=== PATIENT | male | born 1965 | race Caucasian/White ===

== ENCOUNTER 2024-01-04 15:56 | Emergency (ER) | payer MEDICARE, OTHER, SELFPAY ==
[2024-01-04 15:59] VITALS: BP 115/79; BMI 38.1
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
[2024-01-04] MEDS: MOTRIN 400 MG PO (17:53)
[2024-01-04] MEDS: ATIVAN 1 MG PO (17:53)
== END 2024-01-04 21:49 | disposition home or self-care (01) ==
LOC: EMR 15:56
PROVIDERS: EMERGENCY PHYSICIAN Emergency Medicine; FAMILY PHYSICIAN Family Medicine
DX: S29.012A Strain of muscle and tendon of back wall of thorax, initial encounter (principal); M54.2 Cervicalgia; V79.88XA Bus occupant (driver) (passenger) injured in other specified transport accidents, initial encounter; W01.0XXA Fall on same level from slipping, tripping and stumbling without subsequent striking against object, initial encounter; Y92.410 Unspecified street and highway as the place of occurrence of the external cause; I10 Essential (primary) hypertension; F41.9 Anxiety disorder, unspecified; F20.9 Schizophrenia, unspecified; E78.00 Pure hypercholesterolemia, unspecified; F41.0 Panic disorder [episodic paroxysmal anxiety]; Z87.891 Personal history of nicotine dependence
CPT/HCPCS: 99283; 93005

== ENCOUNTER → 2024-06-06 10:20 | Outpatient (REF) | payer MEDICARE, OTHER, SELFPAY | LOC: HWCARD 10:20 | PROVIDERS: ATTENDING PHYSICIAN Registered Nurse; FAMILY PHYSICIAN Family Medicine | DX: R94.31 Abnormal electrocardiogram [ECG] [EKG] (principal) | CPT/HCPCS: 93005 ==

== ENCOUNTER 2024-11-06 06:32 | Emergency (ER) | payer MEDICARE, OTHER, SELFPAY ==
[2024-11-06 06:32] VITALS: BP 173/122
--- NOTE | 2024-11-06 07:53 | ED.GENMED ---
History of Present Illness
General
Chief Complaint: Medication Reaction
Source: patient
Exam Limitations: none
Time Seen by Provider: 11/06/24 07:43
History of Present Illness
History of Present Illness:
59-year-old male presents via EMS from home. He states he just was not feeling well this morning. He woke up shaky. It felt as though his medications need to be adjusted. He follows with his family doctor for this. He states since waiting in
the waiting room and waiting to be seen he is feeling somewhat better. He denies any current chest pain. He denies shortness of breath. He states he has been dealing with a cold.
Past History
Past History
ED Past Medical History: HTN, Hypercholesterolemia and Psychiatric (Schizophrenia, Anxiety, panic disorder)
ED Past Surgical History: None
Social History
Tobacco: Former smoker
Alcohol: None
Drug: None
Personal: Single
Living: other ([facility])
Employment: Not employed
Family History
Family History: Other
Phy Exam
Physical Exam
Physical Exam:
General: Well-appearing male no acute respiratory distress does seem somewhat anxious
HEENT: Normocephalic atraumatic
Heart: Regular rate and rhythm no murmurs
Lungs: Clear no wheeze
Abdomen is soft nontender nondistended no guarding rebound normal bowel sound
Extremities: No cyanosis or edema
Course
Orders/Labs/Results
Orders:
Orders
11/06/24 07:50
Electrocardiogram (*1) Urgent
Reason for Study: Fatigue / Weakness
EKG- Treatment ONCE
11/06/24 08:41
COVID-19 Antigen Urgent
Source: Nasal Swab
Complete Blood Count/With Diff Urgent
Comprehensive Metabolic Panel Urgent
Influenza A+B Rapid Molecular Urgent
CHARO Source: Nasal Swab
Specimen Description:
Abnormal Lab Results
11/06/24
08:41
RBC 4.43 L 10^6/uL
(4.70-6.10)
Absolute Lymphs (auto) 0.9 L 10^3/uL
(1.2-3.4)
Neutrophils % 75.8 H %
(42.2-75.2)
Lymphocytes % 15.8 L %
(20.5-51.1)
Glucose 117 H mg/dl
(70-99)
11/06/24 08:41
11/06/24 08:41
Vital Signs
Initial and Last Documented VS:
Initial Vital Signs
Temp Pulse Resp BP Pulse Ox
98.1 F 100 20 173/122 95
11/06/24 06:32 11/06/24 06:32 11/06/24 06:32 11/06/24 06:32 11/06/24 06:32
Last Documented Vital Signs
Temp Pulse Resp BP Pulse Ox
98.1 F 100 20 173/122 95
11/06/24 06:32 11/06/24 06:32 11/06/24 06:32 11/06/24 06:32 11/06/24 06:32
MDM/Problems Addressed
Differential Diagnosis Includes:
Patient sense that something was off this morning he is a poor historian and cannot describe his symptoms but something told him he mated to his medication adjusted. Will check basic labs check EKG and test for COVID and flu. Overall he is
nontoxic in appearance
*Critical Care Note
Total Time (30-74mins, 75-104mins- exclusive of procedures): Not Applicable
Update Note
Update Note:
Work appear negative reassured patient. No indication for any intervention from emergency room standpoint but did recommend he follow-up with [facility] his medications. Stable for discharge
ED Attending Note
-
Portions of this chart may have been created with voice recognition software.� Occasional wrong word or��sound alike� substitutions may have occurred due to the inherent limitations of voice recognition software.
Discharge Plan
Departure
Patient Disposition: Home (Routine Discharge)
Date of Disposition: 11/06/24
Time of Disposition: 10:00
Patient with high blood pressure during this ER visit?: No
Discharge Problem:
HTN (hypertension)
Instructions: Weakness
Prescriptions:
No Action
clozapine 100 MG tablet
100 mg PO DAILY
clozapine 200 MG tablet
400 mg PO HS
gabapentin 600 mg tablet
600 mg PO BID
sertraline 100 mg tablet
100 mg PO DAILY@1200
rosuvastatin 20 mg tablet
20 mg PO DAILY
pregabalin 75 mg capsule
75 mg PO BID
[place] Honey Cough Drops
1 mary PO Q2H PRN (Reason: sore throat)
lorazepam 1 mg tablet
1 mg PO BID PRN (Reason: anxiety) Qty: 2 0RF
Referrals:
UNKNOWN - PT NOT,INTERVIEWE [Family Provider] -
Activity Restrictions/Additional Instructions:
Please follow-up with your doctor for further evaluation of your medications. return if worse otherwise
Interventions
Interventions:
*Risk Screen - Suicide Last Done: 11/06/24 06:37
*General Assessment Last Done: 11/06/24 08:30
*Neglect/Abuse Screening Last Done: 11/06/24 06:37
*ED COVID-19 Vaccine History Last Done: 11/06/24 08:30
Discharge Date and Time
Print Language: SWISS
[2024-11-06 08:30] VITALS: BMI 36.7
[2024-11-06 08:33] VITALS: BP 154/94
[2024-11-06 09:04] LABS: % Immature Granulocytes 0.2 % (0-0.5); % Lymphocytes 15.8 % (20.5-51.1); % Monocytes 8.2 % (1.7-9.3); % Neutrophils 75.8 % (42.2-75.2); Absolute Lymphocytes 0.9 10^3/uL (1.2-3.4); Absolute Monocytes 0.5 10^3/uL (0.1-0.6); Absolute Neutrophils 4.3 10^3/uL (1.4-6.5); Hematocrit 39.5 % (39.0-52.0); Hemoglobin 13.4 g/dL (13.0-18.0); Mean Corp Hgb Conc. 33.9 g/dL (33.0-37.0); Mean Corpuscular Hgb 30.2 pg (27.0-31.0); Mean Corpuscular Volume 89.2 fL (80.0-94.0); Mean Platelet Volume 10.1 fL (7.4-10.4); Nucleated Red Blood Cells % 0 % (-); Platelet Count 131 10^3/uL (130-400); Red Blood Cell Count 4.43 10^6/uL (4.70-6.10); Red Cell Dist. Width 12.6 % (11.5-14.5); White Blood Cell Count 5.6 10^3/uL (4.8-10.8)
[2024-11-06 09:19] LABS: ALT (SGPT) 31 U/L (0-50); AST (SGOT) 30 U/L (17-59); Albumin 4.5 g/dl (3.5-5.0); Alkaline Phosphatase 100 U/L (38-126); Blood Urea Nitrogen 13 mg/dl (9-20); Calcium 8.5 mg/dl (8.4-10.2); Carbon Dioxide 30 mmol/L (22-30); Chloride 101 mmol/L (98-107); Estimated Creatinine Clearance 113 ml/min; Glucose 117 mg/dl (70-99); Potassium 4.2 mmol/L (3.5-5.1); Sodium 140 mmol/L (135-145); Total Bilirubin 0.7 mg/dl (0.2-1.3); Total Protein 7.2 g/dl (6.3-8.2); eGFR > 60.00
[2024-11-06 09:20] LABS: COVID-19 Antigen Negative (Negative)
[2024-11-06 10:32] VITALS: BP 138/85
== END 2024-11-06 10:45 | disposition home or self-care (01) ==
LOC: EMR 06:32
PROVIDERS: Physician Assistant; EMERGENCY PHYSICIAN Student in an Organized Health Care Education/Training Program
DX: T78.40XA Allergy, unspecified, initial encounter (principal); X58.XXXA Exposure to other specified factors, initial encounter; I10 Essential (primary) hypertension; E78.00 Pure hypercholesterolemia, unspecified; F20.9 Schizophrenia, unspecified; F41.9 Anxiety disorder, unspecified; Z87.891 Personal history of nicotine dependence
CPT/HCPCS: 99283; 80053; 85025; 87502; 87811; 93005

== ENCOUNTER → 2024-11-20 09:40 | Outpatient (REF) | payer MEDICARE, OTHER, SELFPAY | LOC: EMG 09:40 | PROVIDERS: ATTENDING PHYSICIAN Family Medicine | DX: R20.2 Paresthesia of skin (principal); R20.0 Anesthesia of skin | CPT/HCPCS: 95886; 95910 ==

== ENCOUNTER → 2025-07-02 10:22 | Outpatient (REF) | payer MEDICARE, OTHER, SELFPAY | LOC: HWCARD 10:22 | PROVIDERS: ATTENDING PHYSICIAN Registered Nurse; FAMILY PHYSICIAN Family Medicine | DX: R94.31 Abnormal electrocardiogram [ECG] [EKG] (principal) | CPT/HCPCS: 93005 ==